=== PATIENT | male | born 1965 | race African-American/Black ===

== ENCOUNTER 2021-03-18 22:07 | Emergency (ER) | payer MEDICAID ==
[~2021-03-18] VITALS: Ht 180.3 cm; Wt 96.0 kg
[2021-03-18] MEDS ORDERED: KETOROLAC 60MG/2ML VIAL IM ONE (23:00)
[2021-03-18] MEDS ORDERED: HYDROCODONE/ACETAMINOPHEN 5/325MG TABLET PO ONE (23:30)
[2021-03-19] MEDS ORDERED: NAPR-681 MT (00:38)
[2021-03-19 01:48] VITALS: BP 135/76
== END 2021-03-19 01:50 | disposition home or self-care (01) ==
LOC: ER 22:07
DX: M75.42 Impingement syndrome of left shoulder (principal); M25.512 Pain in left shoulder; E11.9 Type 2 diabetes mellitus without complications
CPT/HCPCS: 73030; 99283; J1885